=== PATIENT | male | born 1945 | race Caucasian/White ===

== ENCOUNTER 2016-11-06 07:18 | Day surgery (SDC) | payer MEDICARE ==
[~2016-11-06] VITALS: Ht 180.3 cm; Wt 81.7 kg
[~2016-11-06 07:18] MED LIST: ALBU8.5H2 INHALATION; ASPI-973 PO; CALC-786 PO; DOXY100C2 PO; GINK40CA PO; GLUC100016 PO; HCTZ PO; LEVO750T39 PO; LORA10CA PO; OLME20TA3 PO; OXYC-176 PO; SILD20TA14 PO; TETR250C3 PO; calcium
[2016-11-06] MEDS ORDERED: Sodium Chloride LOK Flush 10 mL Syringe IV PRN (07:30)
[2016-11-06] MEDS ORDERED: fentaNYL-PF 50 mCg/mL 2 mL Inj IVPUSH PRN (07:30)
[2016-11-06] MEDS ORDERED: 0.9% Sodium Chloride 1,000 ML IV PRN (07:30)
[2016-11-06 07:41] VITALS: BP 131/80; PULSE 83; RESP 16; O2SAT 98
[2016-11-06 08:52] VITALS: BP 112/69; PULSE 80; RESP 15; O2SAT 94
[2016-11-06 09:02] VITALS: BP 115/64; PULSE 79; RESP 15; O2SAT 94
[2016-11-06 09:12] VITALS: BP 138/67; PULSE 0; RESP 15; O2SAT 95
--- NOTE | 2016-11-06 09:19 | ENDO ---
[address] [address] ENDOSCOPY PROCEDURE PATIENT: JULIANE SÁNCHEZ : 1945 MR#: [id number] ADMIT: 11/06/2016 JOB ID: [id number] DATE: 11/06/2016 PREOPERATIVE DIAGNOSIS(ES): Personal history of colon polyps. POSTOPERATIVE DIAGNOSIS(ES): 1. Hepatic flexure polyp. 2. Transverse colon polyp. 3. Rectal polyp. 4. Diffuse diverticulosis. OPERATION: Colonoscopy to cecum with snare polypectomy x3. SURGEON: Sudhir Jay MD. INDICATIONS: The patient is a 71-year-old man with a personal history of adenomatous colonic polyps and he is here for his follow up screening colonoscopy. FINDINGS: He had a fair prep. Diffuse diverticulosis. The scope was advanced to the cecum with clear visualization of cecal landmarks. The terminal ileum was not intubated. The withdrawal time was 13 minutes and 30 seconds. Three polyps were identified. There was a hepatic flexure polyp about 5-6 mm and a transverse colon polyp also 5-6 mm. Both were removed with snare with cautery and retrieved, submitted as separate specimens and grossly consistent with adenomatous polyps. He had a 2-3 mm polyp in the rectum distally that was consistent with a hyperplastic polyp, also removed with a snare with cautery and submitted to Pathology. Retroflexed views of the rectum revealed no other abnormalities. Digital rectal examination was normal. DESCRIPTION OF PROCEDURE: The procedure and sedation plan was discussed with the patient and nursing staff, and a procedural time-out was held. He received 5 mg of Versed and 100 mcg of fentanyl. A digital rectal examination was performed. The Olympus PCF H 180 AL video colonoscope was passed transanally, advanced to the cecum, withdrawn with results and procedures as discussed above. There are no apparent complications. The patient tolerated the procedure well. IMPRESSION: Three polyps and diffuse diverticulosis. RECOMMENDATIONS: Repeat colonoscopy five years. We will call him with results of his pathology.
--- NOTE | 2016-11-07 11:31 | PATH ---
SURGICAL PATHOLOGY Attending Physician:Tobin Dai CASE STATUS: Signed Out PATIENT NAME: JULIANE SÁNCHEZ PID: [id number] : 1945 DATE COLLECTED:11/06/2016 20:23 SPECIMEN: 1: Colon, Biopsy 2: Colon, Biopsy 3: Rectum, Biopsy CLINICAL HISTORY: POLYP 1). TRANSVERSE COLON POLYP 2). HEPATIC FLEXURE COLON POLYP 3). RECTAL POLYP FINAL DIAGNOSIS: 1.TRANSVERSE COLON POLYP: TUBULAR ADENOMA. 2.HEPATIC FLEXURE COLON POLYP: SESSILE SERRATED ADENOMA. 3.RECTAL POLYP: TUBULAR ADENOMA. ICD10 CODE D12.3 GROSS DESCRIPTION: The specimen is received in three formalin filled containers labeled with the patient's name. 1). The specimen is sublabeled "transverse colon polyp" and consists of a 0.3 x 0.3 x 0.3 CM portion of tissue which is entirely submitted in cassette 1A. 2). The specimen is sublabeled "hepatic flexure polyp" and consists of a 0.5 x 0.5 x 0.4 CM portion of tissue which is entirely submitted in cassette 2A. 3). The specimen is sublabeled "rectal polyp" and consists of a 0.3 x 0.3 x 0.2 CM portion of tissue which is entirely submitted in cassette 3A. 11/06/2016 DAC MICRO DESCRIPTION: See diagnosis. ICD-9 CODES: CPT CODES: 1: 63102 2: 99268 3: 25269 Electronically Signed Out Alfonso Malone MD [facility] [address] [facility], [place] [address] Technical component performed at [facility], [address] [place] [address] Ave[address], [place], [address]
== END 2016-11-06 23:59 | disposition home or self-care (01) ==
LOC: END 07:18
PROVIDERS: ATTEND Surgery
DX: Z12.11 Encounter for screening for malignant neoplasm of colon (principal); Z86.010 Personal history of colon polyps; D12.3 Benign neoplasm of transverse colon; D12.8 Benign neoplasm of rectum; K57.30 Diverticulosis of large intestine without perforation or abscess without bleeding; I10 Essential (primary) hypertension; E78.5 Hyperlipidemia, unspecified; E78.00 Pure hypercholesterolemia, unspecified; F32.9 Major depressive disorder, single episode, unspecified; K22.70 Barrett's esophagus without dysplasia; Z79.82 Long term (current) use of aspirin
CPT/HCPCS: 45385; 88305; 99153; G0500; J2250; J3010; J7030